=== PATIENT | female | born 2000 | race Caucasian/White ===

== ENCOUNTER 2023-06-10 20:02 | Emergency (ER) | payer OTHER ==
[2023-06-10 20:13] VITALS: TEMP 98
--- NOTE | 2023-06-10 20:24 | ERPHSYRPT ---
- History of Present Illness Time Seen by Provider: 06/10/23 20:15 Historian: patient Exam Limitations: no limitations Physician History: Patient is a 22-year-old female presents to the emergency department for evaluation of chest pressure and heart palpitations. Symptoms started last Thursday 4 days ago. Symptoms are worse with activity. Patient feels the symptoms are intermittent. Not progressive. No syncope. No nausea vomiting or diaphoresis. No pain. Patient describes her sensation as a pressure. No radiation. Patient has no significant past medical history. She voices no other complaints or concerns at this time. Portions of this note were created with voice recognition technology. There may be grammatical, spelling, punctuation or sound alike errors Activities at Onset: none Quality: pressure Location: substernal Chest Pain Radiation: no radiation Severity of Pain-Max: moderate Severity of Pain-Current: mild Modifying Factors: Improves With: nothing Associated Symptoms: palpitations, shortness of breath Prior Chest Pain/Cardiac Workup: no prior chest pain Nitro Today/Relief: no nitro taken today Aspirin Treatment Today: no aspirin today Allergies/Adverse Reactions: ketamine Allergy (Mild, Verified 06/10/23 20:05) Home Medications: No Reportable Medications [No Reported Medications] 06/10/23 [History] - Review of Systems Constitutional: No Symptoms, No Fever, No Chills Eyes: No Symptoms Ears, Nose, & Throat: No Symptoms Respiratory: No Symptoms, No Cough, No Dyspnea Cardiac: No Symptoms, No Chest Pain, No Edema, No Syncope Abdominal/Gastrointestinal: No Symptoms, No Abdominal Pain, No Nausea, No Vomiting, No Diarrhea Genitourinary Symptoms: No Symptoms, No Dysuria Musculoskeletal: No Symptoms, No Back Pain, No Neck Pain Skin: No Symptoms, No Rash Neurological: No Symptoms, No Dizziness, No Focal Weakness, No Sensory Changes Psychological: No Symptoms Endocrine: No Symptoms Hematologic/Lymphatic: No Symptoms Immunological/Allergic: No Symptoms All Other Systems: Reviewed and Negative - Past Medical History Pertinent Past Medical History: Yes Neurological History: No Pertinent History ENT History: No Pertinent History Cardiac History: No Pertinent History Respiratory History: No Pertinent History Endocrine Medical History: No Pertinent History Musculoskeletal History: No Pertinent History GI Medical History: No Pertinent History History: No Pertinent History Psycho-Social History: Anxiety, Depression Female Reproductive Disorders: No Pertinent History - Past Surgical History Past Surgical History: Yes Neuro Surgical History: No Pertinent History Cardiac: No Pertinent History Respiratory: No Pertinent History Gastrointestinal: Appendectomy Genitourinary: No Pertinent History Musculoskeletal: No Pertinent History Female Surgical History: Section - Social History Drug Use: other - Nursing Vital Signs Nursing Vital Signs: Initial Vital Signs Temperature 98.0 F 06/10/23 20:11 Pulse Rate 68 06/10/23 20:11 Respiratory Rate 23 06/10/23 20:11 Blood Pressure 123/73 06/10/23 20:11 O2 Sat by Pulse Oximetry 99 06/10/23 20:11 Pain Scale Pain Intensity 2 - Physical Exam General Appearance: no apparent distress, alert Eye Exam: PERRL/EOMI, eyes nml inspection Ears, Nose, Throat Exam: normal ENT inspection, moist mucous membranes Neck Exam: normal inspection, non-tender, supple, full range of motion Respiratory Exam: normal breath sounds, lungs clear, airway intact, No respiratory distress Cardiovascular Exam: regular rate/rhythm, normal heart sounds, normal peripheral pulses Gastrointestinal/Abdomen Exam: soft, No tenderness, No mass Back Exam: normal inspection, No CVA tenderness, No vertebral tenderness Extremity Exam: normal inspection, normal range of motion Neurologic Exam: alert, oriented x 3, cooperative, normal mood/affect, sensation nml, No motor deficits Skin Exam: normal color, warm, dry Lymphatic Exam: No adenopathy SpO2 Interpretation: normal SpO2: 99 O2 Delivery: Room Air - Course Nursing assessment & vital signs reviewed: Yes EKG Interpreted by Me: RATE, Sinus Rhythm, NORMAL AXIS, NORMAL INTERVALS - Radiology Exams Chest X-ray Interpretation: Interpreted by me (No acute pathology) Ordered Tests: Active Orders 24 hr Category Date Time Status Chief Program Officer STAT Care 06/10/23 20:13 Active EKG-ER Only STAT Care 06/10/23 20:12 Active IV Insertion STAT Care 06/10/23 20:12 Active Pulse Oximetry (ED) STAT Care 06/10/23 20:12 Active CHEST 1 VIEW (PORTABLE) Stat Exams 06/10/23 20:45 Taken CBC W DIFF Stat Lab 06/10/23 20:23 Completed CMP Stat Lab 06/10/23 20:23 Completed D-DIMER QUANTITATIVE Stat Lab 06/10/23 20:23 Completed HCG QUALITATIVE, URINE Stat Lab 06/10/23 Ordered NT PRO BNPII Stat Lab 06/10/23 20:23 Completed TROPONIN Q4H Lab 06/10/23 20:23 Completed TROPONIN Q4H Lab 06/11/23 00:15 Ordered TROPONIN Q4H Lab 06/11/23 04:15 Ordered TSH, 3RD Generation Stat Lab 06/10/23 20:23 Completed UA W/RFX UR CULTURE Stat Lab 06/10/23 20:59 Ordered Urine Triage Profile Stat Lab 06/10/23 20:59 Ordered Holter Monitor ONCE RT 06/10/23 21:29 Active Lab/Rad Data: Laboratory Result Diagrams 06/10/23 20:23 06/10/23 20:23 Laboratory Results 06/10/23 06/10/23 06/10/23 Range/Units 20:23 20:23 20:23 WBC (4.0-10.5) x10^3/uL RBC (4.1-5.4) x10^6/uL Hgb (12.0-16.0) g/dL Hct (35-47) % MCV (78-100) fL MCH (26-32) pg MCHC (32-36) g/dL RDW (11.5-14.0) % Plt Count (150-450) x10^3/uL MPV (7.5-11.0) fL Gran % (36.0-66.0) % Immature Gran % (Auto) (0.00-0.4) % Nucleat RBC Rel Count (0.00-0.1) % Eos # (Auto) (0-0.5) x10^3/uL Immature Gran # (Auto) (0.00-0.03) x10^3u/L Absolute Lymphs (auto) (1.0-4.6) x10^3/uL Absolute Monos (auto) (0.0-1.3) x10^3/uL Absolute Nucleated RBC (0.00-0.01) x10^3u/L Lymphocytes % (24.0-44.0) % Monocytes % (0.0-12.0) % Eosinophils % (0.00-5.0) % Basophils % (0.0-0.4) % Absolute Granulocytes (1.4-6.9) x10^3/uL Basophils # (0-0.4) x10^3/uL D-Dimer 0.25 (0.0-0.50) mg/L Sodium 137 (137-145) mmol/L Potassium 3.9 (3.5-5.1) mmol/L Chloride 104 (98-107) mmol/L Carbon Dioxide 23 (22-30) mmol/L Anion Gap 13.8 (5-15) MEQ/L BUN 12 (7-17) mg/dL Creatinine 0.52 (0.52-1.04) mg/dL Estimated GFR 133.8 ML/MIN Glucose 113 H (74-106) mg/dL Calcium 9.0 (8.4-10.2) mg/dL Total Bilirubin 0.30 (0.2-1.3) mg/dL AST 18 (14-36) U/L ALT 16 (0-35) U/L Alkaline Phosphatase 52 (38-126) U/L Troponin I < 0.012 (0.000-0.034) ng/mL NT-Pro-B Natriuret Pep < 20.0 (<300) pg/mL Serum Total Protein 7.0 (6.3-8.2) g/dL Albumin 4.2 (3.5-5.0) g/dL TSH 3rd Generation 1.040 (0.47-4.68) mIU/L 06/10/23 Range/Units 20:23 WBC 8.4 (4.0-10.5) x10^3/uL RBC 4.41 (4.1-5.4) x10^6/uL Hgb 13.0 (12.0-16.0) g/dL Hct 38.9 (35-47) % MCV 88.2 (78-100) fL MCH 29.5 (26-32) pg MCHC 33.4 (32-36) g/dL RDW 12.4 (11.5-14.0) % Plt Count 254 (150-450) x10^3/uL MPV 10.9 (7.5-11.0) fL Gran % 69.3 H (36.0-66.0) % Immature Gran % (Auto) 0.2 (0.00-0.4) % Nucleat RBC Rel Count 0.0 (0.00-0.1) % Eos # (Auto) 0 (0-0.5) x10^3/uL Immature Gran # (Auto) 0.02 (0.00-0.03) x10^3u/L Absolute Lymphs (auto) 2.03 (1.0-4.6) x10^3/uL Absolute Monos (auto) 0.52 (0.0-1.3) x10^3/uL Absolute Nucleated RBC 0.00 (0.00-0.01) x10^3u/L Lymphocytes % 24.1 (24.0-44.0) % Monocytes % 6.2 (0.0-12.0) % Eosinophils % 0.0 (0.00-5.0) % Basophils % 0.2 (0.0-0.4) % Absolute Granulocytes 5.85 (1.4-6.9) x10^3/uL Basophils # 0.02 (0-0.4) x10^3/uL D-Dimer (0.0-0.50) mg/L Sodium (137-145) mmol/L Potassium (3.5-5.1) mmol/L Chloride (98-107) mmol/L Carbon Dioxide (22-30) mmol/L Anion Gap (5-15) MEQ/L BUN (7-17) mg/dL Creatinine (0.52-1.04) mg/dL Estimated GFR ML/MIN Glucose (74-106) mg/dL Calcium (8.4-10.2) mg/dL Total Bilirubin (0.2-1.3) mg/dL AST (14-36) U/L ALT (0-35) U/L Alkaline Phosphatase (38-126) U/L Troponin I (0.000-0.034) ng/mL NT-Pro-B Natriuret Pep (<300) pg/mL Serum Total Protein (6.3-8.2) g/dL Albumin (3.5-5.0) g/dL TSH 3rd Generation (0.47-4.68) mIU/L - Progress Progress: improved Air Movement: good Progress Note: 22-year-old female presents to our ED for evaluation of heart palpitations and chest pressure. Symptoms have been ongoing for several days. EKG normal sinus rhythm. Chest x-ray shows no acute pathology. CBC CMP within normal limits. D-dimer negative. hCG negative. BNP negative. Troponin negative. TSH within normal limits. Patient did not provide urine for us here during this visit. However we will discharge patient home. She is asymptomatic. Patient will be discharged with a 48-hour Holter monitor. Patient does not have a local physician. Patient referred to Dr. Rodriguez for follow-up. Vital stable. Patient voices no other complaints or concerns at this time. Portions of this note were created with voice recognition technology. There may be grammatical, spelling, punctuation or sound alike errors Complexity problems addressed is moderate acute complicated No critical care time Complexity of data reviewed and and analyzed is moderate. Test ordered test reviewed. Results analyzed and correlated clinically. Dr. Franco independently reviewed the EKG and chest x-ray. No abnormal findings observed. Risk of complication and or risk of morbidity/mortality of patient management is moderate. Holter monitor placed. This will require follow-up. Patient discharged home. Vital stable. Time spent to discharge patient is approximately 15 minutes. Plan of care established for shared decision making. No social determinants of health present impede follow-up. Portions of this note were created with voice recognition technology. There may be grammatical, spelling, punctuation or sound alike errors 06/10/23 21:36 Blood Culture(s) Obtained: No Antibiotics given: No Counseled pt/family regarding: lab results, diagnosis, need for follow-up, rad results - Departure Departure Disposition: Home Clinical Impression: Heart palpitations Condition: Stable Critical Care Time: No Referrals: DOCTOR,NO FAMILY [Primary Care Provider] - Follow up/PCP as directed LULI RODRIGUEZ MD [ACTIVE STAFF] - Follow up/PCP as directed Additional Instructions: Discharge/Care Plan LORI MTZ was seen on 06/10/23 in the Emergency Room. The patient was counseled regarding Diagnosis,Lab results, Imaging studies, need for follow up and when to return to the Emergency Room. Prescriptions given: Discharge Note I have spoken with the patient and/or caregivers. I have explained the patient's condition, diagnosis and treatment plan based on the information available to me at this time. I have answered the patient's and/or caregiver's questions and addressed any concerns. The patient and/or caregivers have as good understanding of the patient's diagnosis, condition and treatment plan as can be expected at this point. The vital signs have been stable. The patient's condition is stable and appropriate for discharge from the emergency department. The patient will pursue further outpatient evaluation with the primary care physician or other designated or consulting physician as outlined in the discharge instructions. The patient and/or caregivers are agreeable to this plan of care and follow-up instructions have been explained in detail. The patient and/or caregivers have received these instruction. The patient/and or caregivers are aware that any significant change in condition or worsening of symptoms should prompt an immediate return to this or the closest emergency department or call 911.
[2023-06-10 20:28] LABS: Absolute Neutrophil Ct (ANC) 5.85 x10^3/uL (1.4-6.9); BASOPHIL % 0.2 % (0.0-0.4); Basophil (Absolute #) 0.02 x10^3/uL (0-0.4); Eosinophil (Absolute #) 0 x10^3/uL (0-0.5); Hematocrit 38.9 % (35-47); IMMATURE GRAN # 0.02 x10^3u/L (0.00-0.03); IMMATURE GRAN % 0.2 % (0.00-0.4); Lymphocyte (Absolute #) 2.03 x10^3/uL (1.0-4.6); Lymphocytes % 24.1 % (24.0-44.0); Mean Cell Volume 88.2 fL (78-100); Mean Corpuscular Hemoglobin 29.5 pg (26-32); Mean Corpuscular Hgb Concent. 33.4 g/dL (32-36); Mean Platelet Volume 10.9 fL (7.5-11.0); Monocyte (Absolute #) 0.52 x10^3/uL (0.0-1.3); Monocytes % 6.2 % (0.0-12.0); Neutrophil % 69.3 % (36.0-66.0); Platelet Count 254 x10^3/uL (150-450); Red Blood Count 4.41 x10^6/uL (4.1-5.4); Red Cell Distribution Width 12.4 % (11.5-14.0); White Blood Count 8.4 x10^3/uL (4.0-10.5)
[2023-06-10 20:43] LABS: ALBUMIN 4.2 g/dL (3.5-5.0); ANION GAP 13.8 MEQ/L (5-15); BILIRUBIN,TOTAL 0.3 mg/dL (0.2-1.3); Creatinine 1 0.52 mg/dL (0.52-1.04); EST GLOMERULAR FILTRATION RATE 133.8 ML/MIN; Potassium 3.9 mmol/L (3.5-5.1)
[2023-06-10 21:06] VITALS: PULSE 63
[2023-06-10 21:14] LABS: NT PRO BNPII < 20.0 pg/mL (<300); TROPONIN < 0.012 ng/mL (0.000-0.034)
[2023-06-10 21:29] VITALS: O2SAT 99
[2023-06-10 21:37] VITALS: BP 116/66; RESP 18
--- NOTE | 2023-06-11 08:44 | XRAY ---
Indication: Chest pain/tightness. Comparison: None Portable apical lordotic chest demonstrates normal heart and lungs. Bony thorax demonstrates mild levoscoliosis centered at T10. Also displaced left clavicle shaft fracture with bayonet apposition/alignment. Comment: Fracture not reported by interpreting ER clinician. Telephone report was given to Dr. Olmstead at 0838 hrs. on June 11, 2023.
== END 2023-06-10 21:50 | disposition home or self-care (01) ==
LOC: ED 20:02
DX: R00.2 Palpitations (principal); S42.022A Displaced fracture of shaft of left clavicle, initial encounter for closed fracture; R07.9 Chest pain, unspecified
CPT/HCPCS: 36000; 36415; 71045; 80053; 83880; 84443; 84484; 85025; 85379; 93005; 93041; 93225; 94760; 99284

== ENCOUNTER 2023-06-13 15:18 | Emergency (ER) | payer OTHER ==
[2023-06-13 15:44] VITALS: TEMP 98.6
--- NOTE | 2023-06-13 15:54 | ERPHSYRPT ---
- History of Present Illness Time Seen by Provider: 06/13/23 15:45 Source: patient Exam Limitations: no limitations Patient Subjective Stated Complaint: Weakness Triage Nursing Assessment: mmm Physician History: 22 years old female with no past medical history presenting to the emergency room with a chief complaint of tremor in both of her upper lower extremities that she has been having on and off for the last 7 days. The patient states that the shakiness would last probably for 15 to 30 minutes and then stop spontaneously. The patient is not sure what is triggering her tremor, she has no history of anxiety and or depression. She did not take any medications. At present she has no tremor. Allergies/Adverse Reactions: ketamine Allergy (Mild, Verified 06/13/23 15:39) Hx Tetanus, Diphtheria Vaccination/Date Given: Yes Hx Influenza Vaccination/Date Given: No Hx Pneumococcal Vaccination/Date Given: No Travel Risk - International Travel Have you traveled outside of the country in past 3 weeks: No - Coronavirus Screening Are you exhibiting any of the following symptoms?: No Close contact with a COVID-19 positive Pt in past 14-21 Days: No - Vaccine Status Have you recieved a Covid-19 vaccination: Yes [employer]: [employer] - Vaccination Dates Date of 2cond Vaccination (if applicable): 2020 - Review of Systems Constitutional: No Fever, No Chills Eyes: No Symptoms Ears, Nose, & Throat: No Symptoms Respiratory: No Cough, No Dyspnea Cardiac: No Chest Pain, No Edema, No Syncope Abdominal/Gastrointestinal: No Abdominal Pain, No Nausea, No Vomiting, No Diarrhea Genitourinary Symptoms: No Dysuria Musculoskeletal: No Back Pain, No Neck Pain Skin: No Rash Neurological: Other (Tremor in both upper and lower extremities), No Dizziness, No Focal Weakness, No Sensory Changes Psychological: No Symptoms Endocrine: No Symptoms All Other Systems: Reviewed and Negative - Past Medical History Pertinent Past Medical History: Yes Neurological History: No Pertinent History ENT History: No Pertinent History Cardiac History: No Pertinent History Respiratory History: No Pertinent History Endocrine Medical History: No Pertinent History Musculoskeletal History: No Pertinent History GI Medical History: No Pertinent History History: No Pertinent History Psycho-Social History: Anxiety, Depression Female Reproductive Disorders: No Pertinent History - Past Surgical History Past Surgical History: Yes Neuro Surgical History: No Pertinent History Cardiac: No Pertinent History Respiratory: No Pertinent History Gastrointestinal: Appendectomy Genitourinary: No Pertinent History Musculoskeletal: No Pertinent History Female Surgical History: Section - Social History Smoking Status: Former smoker Exposure to second hand smoke: No Drug Use: other Patient Lives Alone: No - Female History Hx Last Menstrual Period: currently Hx Now: No - Nursing Vital Signs Nursing Vital Signs: Initial Vital Signs Temperature 98.6 F 06/13/23 15:41 Pulse Rate 62 06/13/23 15:41 Respiratory Rate 18 06/13/23 15:41 Blood Pressure 149/109 06/13/23 15:41 O2 Sat by Pulse Oximetry 98 06/13/23 15:41 Pain Scale Pain Intensity 0 - Physical Exam General Appearance: no apparent distress, alert Eye Exam: PERRL/EOMI, eyes nml inspection Ears, Nose, Throat Exam: normal ENT inspection, TMs normal, pharynx normal, moist mucous membranes Neck Exam: normal inspection, non-tender, supple, full range of motion Respiratory Exam: normal breath sounds, lungs clear, No respiratory distress Cardiovascular Exam: regular rate/rhythm, normal heart sounds, normal peripheral pulses Gastrointestinal/Abdomen Exam: soft, normal bowel sounds, No tenderness, No mass Back Exam: normal inspection, normal range of motion, No CVA tenderness, No vertebral tenderness Extremity Exam: normal inspection, normal range of motion, pelvis stable Neurologic Exam: alert, oriented x 3, cooperative, correctional cook II-XII nml as tested, normal mood/affect, nml cerebellar function, nml station & gait, sensation nml, other (The patient was in tears when she was talking), No motor deficits, No sensory deficit Skin Exam: normal color, warm, dry, No rash Lymphatic Exam: No adenopathy SpO2: 98 Ordered Tests: Active Orders 24 hr Category Date Time Status CBC W DIFF Stat Lab 06/13/23 15:55 Completed CMP Stat Lab 06/13/23 15:55 Completed MAGNESIUM Stat Lab 06/13/23 15:55 Completed TSH [TSH, 3RD Generation] Stat Lab 06/13/23 15:55 Completed Holter Monitor Scan-RT ONCE RT 06/13/23 15:00 Completed Medication Summary Generic Name Dose Route Start Last Admin Trade Name Freq PRN Reason Stop Dose Admin Piperacillin Sod/Tazobactam 100 mls @ 200 mls/hr 06/14/23 07:36 Sod 3.375 gm/ Sodium Chloride IV 06/14/23 08:05 STAT ONE Lab/Rad Data: Laboratory Result Diagrams 06/13/23 15:55 06/13/23 15:55 Laboratory Results 06/13/23 06/13/23 Range/Units 15:55 15:55 WBC 4.8 (4.0-10.5) x10^3/uL RBC 4.09 L (4.1-5.4) x10^6/uL Hgb 12.2 (12.0-16.0) g/dL Hct 36.6 (35-47) % MCV 89.5 (78-100) fL MCH 29.8 (26-32) pg MCHC 33.3 (32-36) g/dL RDW 12.5 (11.5-14.0) % Plt Count 253 (150-450) x10^3/uL MPV 10.8 (7.5-11.0) fL Gran % 50.1 (36.0-66.0) % Immature Gran % (Auto) 0.2 (0.00-0.4) % Nucleat RBC Rel Count 0.0 (0.00-0.1) % Eos # (Auto) 0 (0-0.5) x10^3/uL Immature Gran # (Auto) 0.01 (0.00-0.03) x10^3u/L Absolute Lymphs (auto) 1.92 (1.0-4.6) x10^3/uL Absolute Monos (auto) 0.42 (0.0-1.3) x10^3/uL Absolute Nucleated RBC 0.00 (0.00-0.01) x10^3u/L Lymphocytes % 40.3 (24.0-44.0) % Monocytes % 8.8 (0.0-12.0) % Eosinophils % 0.0 (0.00-5.0) % Basophils % 0.6 (0.0-0.4) % Absolute Granulocytes 2.39 (1.4-6.9) x10^3/uL Basophils # 0.03 (0-0.4) x10^3/uL Sodium 137 (137-145) mmol/L Potassium 3.8 (3.5-5.1) mmol/L Chloride 108 H (98-107) mmol/L Carbon Dioxide 19 L (22-30) mmol/L Anion Gap 14.3 (5-15) MEQ/L BUN 7 (7-17) mg/dL Creatinine 0.47 L (0.52-1.04) mg/dL Estimated GFR 137.1 ML/MIN Glucose 90 (74-106) mg/dL Calcium 9.1 (8.4-10.2) mg/dL Magnesium 2.0 (1.6-2.3) mg/dL Total Bilirubin 0.50 (0.2-1.3) mg/dL AST 17 (14-36) U/L ALT 14 (0-35) U/L Alkaline Phosphatase 57 (38-126) U/L Serum Total Protein 6.8 (6.3-8.2) g/dL Albumin 4.1 (3.5-5.0) g/dL TSH 3rd Generation 1.680 (0.47-4.68) mIU/L - Progress Progress Note: 06/13/23 17:45 22 years old female with no past medical history presenting to the emergency room with a chief complaint of tremor in both of her upper lower extremities that she has been having on and off for the last 7 days. The patient states that the shakiness would last probably for 15 to 30 minutes and then stop spontaneously. The patient is not sure what is triggering her tremor, she has no history of anxiety and or depression. She did not take any medications. At present she has no tremor. Differential diagnosis Most probably the patient have anxiety and/or panic attack. Rule out hyperthyroidism Electrolyte abnormalities We will check CBC, CMP, magnesium and TSH. The patient remains a stable, asymptomatic no tremor or shakiness. Profile CBC, CMP and TSH are within normal limits. The patient was reassured about the negative work-up. She will be discharged home on Ativan 1 mg to be taken twice a day as needed for these anxiety, tremors pulse. Follow-up with your family physician in 2 to 3 days. Follow-up as needed for any worsening symptoms. 06/14/23 07:40 - Departure Departure Disposition: Home Clinical Impression: Tremor, Panic anxiety syndrome Condition: Stable Critical Care Time: No Referrals: DOCTOR,NO FAMILY [Primary Care Provider] - Follow up/PCP as directed Instructions: Anxiety, Adult ED Additional Instructions: Follow-up with your family physician in 2 to 3 days. Take Ativan 1 mg every 8 hours as needed if you are having any anxiety attack or tremor. Prescriptions: Lorazepam 1 mg [Ativan 1 MG] 1 mg PO Q8H PRN PRN #8 tablet PRN Reason: Anxiety
[2023-06-13 15:59] LABS: Absolute Neutrophil Ct (ANC) 2.39 x10^3/uL (1.4-6.9); BASOPHIL % 0.6 % (0.0-0.4); Basophil (Absolute #) 0.03 x10^3/uL (0-0.4); Eosinophil (Absolute #) 0 x10^3/uL (0-0.5); Hematocrit 36.6 % (35-47); Hemoglobin 12.2 g/dL (12.0-16.0); IMMATURE GRAN # 0.01 x10^3u/L (0.00-0.03); IMMATURE GRAN % 0.2 % (0.00-0.4); Lymphocyte (Absolute #) 1.92 x10^3/uL (1.0-4.6); Lymphocytes % 40.3 % (24.0-44.0); Mean Cell Volume 89.5 fL (78-100); Mean Corpuscular Hemoglobin 29.8 pg (26-32); Mean Corpuscular Hgb Concent. 33.3 g/dL (32-36); Mean Platelet Volume 10.8 fL (7.5-11.0); Monocyte (Absolute #) 0.42 x10^3/uL (0.0-1.3); Monocytes % 8.8 % (0.0-12.0); Neutrophil % 50.1 % (36.0-66.0); Platelet Count 253 x10^3/uL (150-450); Red Blood Count 4.09 x10^6/uL (4.1-5.4); Red Cell Distribution Width 12.5 % (11.5-14.0); White Blood Count 4.8 x10^3/uL (4.0-10.5)
[2023-06-13 16:42] LABS: ALBUMIN 4.1 g/dL (3.5-5.0); ANION GAP 14.3 MEQ/L (5-15); BILIRUBIN,TOTAL 0.5 mg/dL (0.2-1.3); Calcium 9.1 mg/dL (8.4-10.2); Creatinine 1 0.47 mg/dL (0.52-1.04); EST GLOMERULAR FILTRATION RATE 137.1 ML/MIN; Potassium 3.8 mmol/L (3.5-5.1); TSH, 3RD Generation 1.68 mIU/L (0.47-4.68); Total Protein 6.8 g/dL (6.3-8.2)
[2023-06-13 17:03] VITALS: BP 113/79; PULSE 68
[2023-06-13 17:48] VITALS: O2SAT 98
[2023-06-13 17:58] VITALS: RESP 18
[2023-06-14] MEDS ORDERED: PIPERACILLIN/TAZOBACTAM 3.375 GM in Sodium Chloride 100ML MINI-BAG PLUS 100 ML IV ONE (07:36)
== END 2023-06-13 18:00 | disposition home or self-care (01) ==
LOC: ED 15:18
DX: R25.1 Tremor, unspecified (principal); F41.0 Panic disorder [episodic paroxysmal anxiety]
CPT/HCPCS: 36415; 80053; 83735; 84443; 85025; 99282